=== PATIENT | female | born 1980 | race Caucasian/White ===

== ENCOUNTER 2018-05-18 10:52 | Outpatient (CLI) | payer BC, SELFPAY ==
[2018-05-18 13:00] LABS: ALT 26 U/L (12-78); AST 18 U/L (15-37); Albumin 3.6 g/dL (3.4-5.0); Alkaline Phosphatase 47 U/L (46-116); Anion Gap 10.5 mmol/L (3-11); BUN 10 mg/dL (7-18); Bilirubin, Total 0.3 mg/dL (0.2-1.0); CO2 24.5 mmol/L (21.0-32.0); CREATININE 0.78 mg/dL (0.55-1.02); Calcium 8.6 mg/dL (8.5-10.1); Chloride 105 mmol/L (98-107); Glucose 73 mg/dL (70-100); Sodium 140 mmol/L (136-145); TSH 2.27 uIU/mL (0.358-3.74); Total Protein 7.1 g/dL (6.4-8.2)
[2018-05-19 09:58] LABS: Prolactin 8.3 ng/ml
== END 2018-05-18 11:12 ==
PROVIDERS: PCP Internal Medicine; Visit Provider Obstetrics & Gynecology
DX: Z00.00 Encounter for general adult medical examination without abnormal findings (principal); D64.9 Anemia, unspecified; N64.52 Nipple discharge
CPT/HCPCS: 36415; 80053; 84146; 84443

== ENCOUNTER 2018-05-18 11:27 | Outpatient (REF) | payer BC, SELFPAY ==
--- NOTE | 2018-05-18 10:20 | PAPNONF_PTH ---
PATIENT: CHRISTINE SINCLAIR LOC: [facility] U#:[id number] AGE/SX: 38/F ROOM: RE05/18/[address]: Laura Polanco MD : [id number] BED: DIS: 05/18/2018 SPEC #: [id number] RECD: 05/18/18 12:37 STATUS: [place] REQ #: [id number] LIZZIE: 05/18/18 10:[address]: Laura Polanco DEPT: [facility] Cytology RECD BY: Xi Price ENTERED: 05/18/18 12:39 SP TYPE: PAPNONF JYOTI DR: Noah Morrow Tissues: 1 - BODY FLUID CYTO-NIPPLE DC Procedures: BODY FLUID CYTO(NIPPLE DC)UV Comments: [id number]
== END 2018-05-18 11:47 ==
LOC: LBN 11:27
PROVIDERS: PCP Internal Medicine; Visit Provider Obstetrics & Gynecology
DX: N64.52 Nipple discharge (principal)
CPT/HCPCS: 88104

== ENCOUNTER 2018-06-06 01:19 | Outpatient (CLI) | payer BC, SELFPAY ==
--- NOTE | 2018-06-06 09:30 | DI.COMBO_ITS ---
SYMPTOMS/DIAGNOSIS: MARLEE BREAST DISCHARGE, N64.52 MAMMOGRAM AND BILATERAL BREAST ULTRASOUND: Mammograms were interpreted according to the usual protocol including computer analysis with CAD system, tomosynthesis and C view imaging. The mammogram is a baseline examination. The breasts are composed of heterogeneously dense fibroglandular tissue, breast density Category C. No masses or suspicious calcifications are seen. Bilateral breast ultrasound shows mildly dilated ducts in the subareolar regions bilaterally. A 4 mm cyst is seen in the subareolar region of the left breast, not visible by mammogram. No intraductal masses are seen. IMPRESSION: Category 2, negative mammogram and bilateral breast ultrasound with benign findings of mildly dilated subareolar ducts. Bilateral screening mammography is recommended beginning at age 40. [facility] ASSESSMENT OF FINDINGS: Negative with benign findings. Category 2. Patient will receive a letter notifying them of these results. Bi-RADS category C. The breasts are heterogeneously dense, which may obscure small masses.
== END 2018-06-06 01:39 ==
PROVIDERS: PCP Obstetrics & Gynecology; Visit Provider Obstetrics & Gynecology
DX: N64.52 Nipple discharge (principal); N60.02 Solitary cyst of left breast; N64.89 Other specified disorders of breast
CPT/HCPCS: 76642; 77062; 77066; G0279

== ENCOUNTER 2019-06-22 11:27 | Outpatient (CLI) | payer BC, SELFPAY ==
[2019-06-22 12:38] LABS: HCT 35.7 % (36.0-46.0); HGB 10.8 g/dL (12.0-15.5)
[2019-06-22 13:19] LABS: Calculated LDL 91 mg/dL; Cholesterol 167 mg/dL (<200); HDL Cholesterol 57 mg/dL (40-60); Triglyceride 98 mg/dL (<150)
[2019-06-25 08:44] LABS: Vitamin D 25 Total 46.5 ng/ml (30-100)
== END 2019-06-22 11:47 ==
PROVIDERS: PCP Obstetrics & Gynecology; Visit Provider Nurse Practitioner Family
DX: D64.9 Anemia, unspecified (principal); Z13.220 Encounter for screening for lipoid disorders
CPT/HCPCS: 36415; 80061; 82306; 85014; 85018